=== PATIENT | female | born 1990 | race Caucasian/White ===

== ENCOUNTER 2018-08-13 15:26 | Emergency (ER) | payer OTHER ==
[2018-08-13 15:31] VITALS: BP 143/112
[2018-08-13 16:46] LABS: ABS Basophils 0 10^3/ul (0-0.2); ABS Eosinophils 0.1 10^3/ul (0-0.6); ABS Lymphocytes 2.4 10^3/ul (1.0-4.8); ABS Monocytes 0.7 10^3/ul (0-0.8); ABS Neutrophils 6.6 10^3/ul (1.5-7.7); ABS Nucleated RBC 0 10^3/ul; Eosinophil % 1.1 %; Hematocrit 41 % (33-41); Hemoglobin 13.9 g/dL (12.0-16.0); Lymphocyte % 23.9 %; Mean Corpuscular HGB Conc 34 g/dL (31-36); Mean Corpuscular Hemoglobin 31 pg (27-31); Mean Corpuscular Volume 91 fL (80-97); Mean Platelet Volume 8.8 fL (7.4-10.4); Nucleated Red Blood Cells % 0.2; Platelet Count 315 10^3/uL (150-450); Red Blood Count 4.49 10^6 /uL (3.70-4.87); Red Cell Distribution Width 14 % (10.5-15); White Blood Count 9.9 10^3/uL (3.5-10.8)
--- NOTE | 2018-08-13 16:59 | ED ---
GI/ HPI - HPI Summary HPI Summary: 28 year old female LMP may 12 presents with vaginal bleeding today. She states she thought she was 2 months ago and has not followed with anyone since. She developed vaginal spotting for the past 2 hours. She denies any dizziness or palpitations. Denies abdominal pain. No cramping. No urinary symptoms. No nausea or vomiting. This has never happened before. She' s not had ultrasound to confirm the . Has no medical conditions. No fevers. - History of Current Complaint Chief Complaint: EDOBProblems Time Seen by Provider: 08/13/18 15:54 Stated Complaint: AND BLEEDING PER PT Pain Intensity: 0 - Allergy/Home Medications Allergies/Adverse Reactions: Allergies Allergy/AdvReac Type Severity Reaction Status Date / Time diphenhydramine Allergy See Comment Verified 08/13/18 15:29 [From Benadryl] latex Allergy Rash Verified 08/13/18 17:00 red dye Allergy Agitation Verified 08/13/18 17:00 Home Medications: Home Medications NK [No Home Medications Reported] 08/13/18 [History Confirmed 08/13/18] PMH/Surg Hx/FS Hx/Imm Hx Endocrine/Hematology History: Denies: Hx Anticoagulant Therapy Respiratory History: Denies: Hx Asthma Infectious Disease History: No Infectious Disease History: Denies: Traveled Outside the [place] in Last 30 Days - Family History Known Family History: Positive: Non-Contributory - Social History Alcohol Use: None Review of Systems Negative: Fever Negative: Chest Pain Negative: Shortness Of Breath Positive: Other - vaginal bleeding. Negative: Abdominal Pain, Vomiting, Nausea All Other Systems Reviewed And Are Negative: Yes Physical Exam Triage Information Reviewed: Yes Vital Signs On Initial Exam: Initial Vitals Temp Pulse Resp BP Pulse Ox 98.1 F 103 16 143/112 99 08/13/18 15:28 08/13/18 15:28 08/13/18 15:28 08/13/18 15:28 08/13/18 15:28 Vital Signs Reviewed: Yes Appearance: Positive: Well-Appearing Skin: Positive: Warm, Dry Head/Face: Positive: Normal Head/Face Inspection Eyes: Positive: Normal, Conjunctiva Clear ENT: Positive: Pharynx normal Respiratory/Lung Sounds: Positive: Clear to Auscultation, Breath Sounds Present Cardiovascular: Positive: Normal, RRR Abdomen Description: Positive: Nontender, Soft Bowel Sounds: Positive: Present Musculoskeletal: Positive: Normal Neurological: Positive: Normal Psychiatric: Positive: Normal Diagnostics - Vital Signs Vital Signs Temp Pulse Resp BP Pulse Ox 08/13/18 15:28 98.1 F 103 16 143/112 99 - Laboratory Lab Results: Lab Results 08/13/18 08/13/18 Range/Units 16:39 16:39 WBC 9.9 (3.5-10.8) 10^3/uL RBC 4.49 (3.70-4.87) 10^6 /uL Hgb 13.9 (12.0-16.0) g/dL Hct 41 (33-41) % MCV 91 (80-97) fL MCH 31 (27-31) pg MCHC 34 (31-36) g/dL RDW 14 (10.5-15) % Plt Count 315 (150-450) 10^3/uL MPV 8.8 (7.4-10.4) fL Neut % (Auto) 67.4 % Lymph % (Auto) 23.9 % [place] % (Auto) 7.4 % Eos % (Auto) 1.1 % Baso % (Auto) 0.2 % Absolute Neuts (auto) 6.6 (1.5-7.7) 10^3/ul Absolute Lymphs (auto) 2.4 (1.0-4.8) 10^3/ul Absolute Monos (auto) 0.7 (0-0.8) 10^3/ul Absolute Eos (auto) 0.1 (0-0.6) 10^3/ul Absolute Basos (auto) 0 (0-0.2) 10^3/ul Absolute Nucleated RBC 0 10^3/ul Nucleated RBC % 0.2 Blood Type Pending Antibody Screen Pending Result Diagrams: 08/13/18 16:39 08/13/18 16:39 Lab Statement: Any lab studies that have been ordered have been reviewed, and results considered in the medical decision making process. - Ultrasound No standard instances Ultrasound Interpretation Completed By: Radiologist Summary of Ultrasound Findings: IMPRESSION: No intrauterine or ectopic identified. GIGU Course/Dx - Course Course Of Treatment: 28 year old female LMP may 12 presents with vaginal bleeding today. She states she thought she was 2 months ago and has not followed with anyone since. She developed vaginal spotting for the past 2 hours. She denies any dizziness or palpitations. Denies abdominal pain. No cramping. No urinary symptoms. No nausea or vomiting. This has never happened before. She's not had ultrasound to confirm the . Has no medical conditions. No fevers. On exam Nontender abdomen. wbc normal. hcg neg. ultrasound shows no findings. discussed that patient is not and this is likely just her period. patient understand and agrees with plan. - Diagnoses Differential Diagnoses - Female: Ectopic , , Urinary Tract Infection Provider Diagnoses: Vaginal bleeding Discharge - Sign-Out/Discharge Documenting (check all that apply): Patient Departure Patient Received Moderate/Deep Sedation with Procedure: No - Discharge Plan Condition: Good Disposition: HOME Patient Education Materials: Dysfunctional Uterine Bleeding (ED) Referrals: Zoraida Solano MD [Primary Care Provider] - Additional Instructions: Take tyenlol or ibuprofen as needed for pain Return to ED if develop any new or worsening symptoms - Billing Disposition and Condition Condition: GOOD Disposition: Home
[2018-08-13 17:08] LABS: Albumin 4.2 g/dL (3.2-5.2); Albumin/Globulin Ratio 1.8 (1-3); BUN/Creatinine Ratio 10.8 (8-20); EGFR African American 114.8 (>60); EGFR Non-African American 94.9 (>60); Globulin 2.4 g/dL (2-4); Potassium 3.8 mmol/L (3.5-5.0); Total Bilirubin 0.4 mg/dL (0.2-1.0); Total Protein 6.6 g/dL (6.4-8.9)
== END 2018-08-13 18:25 | disposition home or self-care (01) ==
LOC: ED 15:26
DX: N93.9 Abnormal uterine and vaginal bleeding, unspecified (principal)
CPT/HCPCS: 36415; 76801; 80053; 84702; 85025; 86850; 86900; 86901; 99282